=== PATIENT | male | born 1945 | race Caucasian/White ===

== ENCOUNTER → 2017-01-19 | Outpatient (CLI) | payer OTHER ==
--- NOTE | 2017-01-23 12:34 | CODING QUERY MEDICAL NECESSITY ---
SUPPORTING DIAGNOSIS NEEDED Dr. Bowen, A supporting diagnosis is required for the test/procedure performed on this patient in order for us to be reimbursed by the patient's insurance. Please provide a supporting diagnosis for the following test/procedure listed below next to the test name along with your signature. *If there is no additional diagnosis for this patient that would support the following test/procedure please document that below next to the test/procedure. Test(s)/Procedure(s) that require a supporting diagnosis: * [id number] PSA DIAGNOSIS: DATE OF SERVICE: 01/19/17 Provider Signature: Date: Thank you Anthony Dallas [facility] Information Management Once completed, please kindly fax back to [phone] For questions please call [phone]
== END | disposition home or self-care (01) ==
LOC: C.LAB 09:28
PROVIDERS: ATTEND Urology
DX: Z00.00 Encounter for general adult medical examination without abnormal findings (principal); M19.90 Unspecified osteoarthritis, unspecified site; N48.6 Induration penis plastica; N40.1 Benign prostatic hyperplasia with lower urinary tract symptoms

== ENCOUNTER 2021-09-20 23:58 | Inpatient (IN) ==
[2021-09-21 00:32] LABS: Basophils # (auto) 0.01 K/uL (0-0.2); Basophils % (auto) 0.1 %; Eosinophils # (auto) 0.02 K/uL (0-0.5); Eosinophils % (auto) 0.3 %; Hematocrit (blood only) 43.5 % (42-52); Hemoglobin 14.5 g/dL (14.0-18.0); Immature Granulocytes # (auto) 0.01 K/uL (0.00-0.02); Immature Granulocytes % (auto) 0.1 %; Lymphocytes # (auto) 0.63 K/uL (1.2-3.4); Lymphocytes % (auto) 8.6 %; Mean Corpuscular Hgb Conc 33.3 g/dL (32-36); Mean Corpuscular Volume 93.1 fL (80-100); Mean Platelet Volume 9.6 fL (7.4-10.4); Monocytes # (auto) 0.68 K/uL (0.11-0.59); Monocytes % (auto) 9.3 %; Neutrophils # (auto) 5.96 K/uL (1.4-6.5); Neutrophils % (auto) 81.6 %; Platelet Count 218 K/uL (130-400); RDW Standard Deviation 43.9 fL (36.4-46.3); Red Blood Count 4.67 M/uL (4.7-6.1); White Blood Count 7.31 K/uL (4.8-10.8)
[2021-09-21 00:36] LABS: Appearance Urine Clear (Clear); Bacteria Urine Automated Negative (Negative); Bilirubin Urine Negative (Negative); Blood Urine Negative (Negative); Cast Urine Automated 0 /lpf (0-5); Color Urine Yellow; Glucose Urine UA Negative (Negative); Ketones Urine Trace (Negative); Leukocyte Esterase Urine Negative (Negative); Nitrite Urine Negative (Negative); RBC Urine Automated 0-4 /hpf (0-4); Specific Gravity Urine 1.022 (1.000-1.030); Urobilinogen Urine Negative (Negative); WBC Urine Automated 0 /hpf (0-5); pH Urine >= 9.0 (4.5-7.5)
[2021-09-21 00:41] LABS: Protein Urine Trace (Negative)
[2021-09-21 00:42] LABS: Partial Thromboplastin Ratio 0.9; Partial Thromboplastin Time 24.9 Seconds (21.0-31.0); Prothrombin Time 10.3 Seconds (9.0-12.0)
--- NOTE | 2021-09-21 00:53 | Emergency Department Note ---
Impression & Plan COVID-19, Episode of generalized weakness, Fall Admit to the [facility] ED Provider Note NAME: MICHAEL CLARKE AGE: 76 SEX: M ARRIVES VIA: Ambulance INFORMANT: Patient's ED PROVIDER(S): Madison Lorenzo DO CHIEF COMPLAINT: Fall PLAN: Disposition: Admit to the [facility] Condition: Stable MEDICAL DECISION MAKING: This is a 76-year-old male who presents to the emergency department after suffering a fall at home. The was unable to get him up from the floor and called EMS. Upon presentation to the emergency department, the patient was noted to be febrile. Septic protocol was performed and he was noted to have COVID-19. Chest x-ray was unremarkable. O2 saturations were stable. Urinalysis was negative. Patient has been exhibiting signs of generalized weakness over the past 48 hours and has suffered 2 separate falls. I am con cerned the patient is not safe to go home for fear that he would strike his head or possibly break his hip if he were to fall again. I discussed the case with the [facility] Hospitalist and they will evaluate for further management. Triage Nursing notes reviewed and agree with them. Additional history obtained from the patient's is at the bedside Prior medical records reviewed Vital Signs: reviewed and remarkable for fever Differential diagnosis: Sepsis, UTI, pneumonia, COVID-19, bacteremia ER treatment provided: Oral Tylenol IV normal saline Diagnostics interpreted by me: ECG: Normal sinus rhythm at a rate of [address] segment elevation or signs of ischemia. There is no ectopy. Cardiac Monitoring: normal sinus rhythm at 90 Laboratory studies: See below Imaging studies: As per my interpretation Portable chest x-ray: No acute pulmonary infiltrates or consolidation Consultation(s): HPI: 76/M arrives for evaluation of increased confusion and fall. The explains that the patient seemed to be off balance and confused yesterday. Today he suffered a fall in the bathroom earlier. This evening, the patient seemed to become more weak and had a decreased appetite at dinnertime. The patient went to bed and then got up from bed and fell to the ground. He seemed more confused and was shaking. The was concerned he may have a urinary tract infection as he had increased urinary frequency. ROS: See above HPI for pertinent positives & negatives. A total of 10 systems reviewed and were otherwise negative. PAST MEDICAL HISTORY:See Below PAST SURGICAL HISTORY:See Below FAMILY HISTORY:See Below SOCIAL HISTORY:See Below HOME MEDICATIONS:See Below ALLERGIES:See Below VITALS:See Below PHYSICAL EXAMINATION: HEENT: Head - normocephalic and atraumatic. Pupils are equal, round, and reactive to light. Extraocular eye muscles are intact, and sclera are anicter ic. Nose - moist nasal mucosa without discharge. Mouth - moist buccal mucosa. Oropharynx is nonerythematous and there is no tonsillar exudate or edema noted. Neck: Supple; no JVD or cervical lymphadenopathy Heart: Regular rate and rhythm. There is a normal S1 and S2 with no murmurs, clicks, or gallops appreciated. Lungs: Clear to auscultation bilaterally with no wheezes, rales, or rhonchi. Abdomen: Soft, completely nontender, nondistended, with good bowel sounds. There are no palpable pulsatile masses or hepatosplenomegaly. There is no guarding, rigidity, or rebound noted. Extremities: No evidence of cyanosis, clubbing, or edema. There are easily palpable peripheral pulses. Skin: warm and dry with good turgor and no rashes. Neuro: The patient is able to follow commands. He is confused consistent with his dementia. ED COURSE: Times/Reassessments: 0015: The patient was evaluated in room C3. A complete history and physical was performed. Chest x-ray was performed. COVID testing was performed. A septic protocol was performed. An order was placed for continuous cardiac monitoring. The patient was in a normal sinus rhythm at a rate of 90. A twelve-lead EKG was obtained. The patient was given a dose of oral Tylenol. He was bolused with IV normal saline solution and started on a normal saline drip. Madison Lorenzo DO Past Med/Surg History Medical History (Updated 09/21/21 @ 01:37 by Madison Lorenzo DO) Dementia Hypercholesterolemia Social History (Updated 11/02/20 @ 19:47 by Dhara Jamison MD) Smoking Status: Unknown if ever smoked Preferred Language: Danish marital status: Feels Safe at Home: Yes Allergies Allergies Allergy/AdvReac Type Severity Reaction Status Date / Time No Known Allergies Allergy Verified 09/21/21 00:32 Home Meds Home Medications Medication Instructions Recorded Confirmed atorvastatin 20 mg tablet (Lipitor) 20 mg PO DAILY 10/28/20 09/21/21 donepezil 10 mg tablet 10 mg PO DAILY 10/28/20 09/21/21 Results & Data (ED) Vital Signs Vital Signs - 24 hr 09/21/21 00:04 09/21/21 00:20 09/21/21 00:30 Temperature 38.3 C H Temperature Source Oral Pulse Rate 96 H 88 Pulse Rate from SpO2 Sensor 89 Respiratory Rate 26 H 23 Respiratory Effort / Characteristics Non-Labored Blood Pressure 153/75 H 108/59 L Blood Pressure Mean 101 75 Blood Pressure Position Sitting Pulse Oximetry 94 97 97 Oxygen Delivery Method Room Air Room Air Room Air Sepsis Recent Fever Within 48 Hours Yes Sepsis New/Unexplained Change in Mental Status Yes Sepsis Action Taken by Nursing Physician Notified 09/21/21 00:50 09/21/21 01:00 Temperature Temperature Source Pulse Rate 90 Pulse Rate from SpO2 Sensor 90 Respiratory Rate 20 19 Respiratory Effort / Characteristics Non-Labored Blood Pressure 121/61 Blood Pressure Mean 81 Blood Pressure Position Pulse Oximetry 96 97 Oxygen Delivery Method Room Air Room Air Sepsis Recent Fever Within 48 Hours Sepsis New/Unexplained Change in Mental Status Sepsis Action Taken by Nursing Laboratory Data Result diagrams: 09/21/21 00:20 09/21/21 00:20 Lab Results 09/21/21 09/21/21 09/21/21 Range/Units 00:10 00:20 00:20 WBC 7.31 (4.8-10.8) K/uL RBC 4.67 L (4.7-6.1) M/uL Hgb 14.5 (14.0-18.0) g/dL Hct 43.5 (42-52) % MCV 93.1 (80-100) fL MCH 31.0 (25-34) pg MCHC 33.3 (32-36) g/dL RDW Std Deviation 43.9 (36.4-46.3) fL RDW Coeff of Dalila 13.0 (11.5-14.5) % Plt Count 218 (130-400) K/uL MPV 9.6 (7.4-10.4) fL Immature Gran % (Auto) 0.1 % Neut % (Auto) 81.6 % Lymph % (Auto) 8.6 % Scurry % (Auto) 9.3 % Eos % (Auto) 0.3 % Baso % (Auto) 0.1 % Neut # (Auto) 5.96 (1.4-6.5) K/uL Lymph # (Auto) 0.63 L (1.2-3.4) K/uL Scurry # (Auto) 0.68 H (0.11-0.59) K/uL Eos # (Auto) 0.02 (0-0.5) K/uL Baso # (Auto) 0.01 (0-0.2) K/uL Immature Gran # (Auto) 0.01 (0.00-0.02) K/uL PT 10.3 (9.0-12.0) Seconds INR 1.0 (0.9-1.1) APTT 24.9 (21.0-31.0) Seconds PTT Ratio 0.9 Sodium (136-145) mmol/L Potassium (3.5-5.1) mmol/L Chloride (98-107) mmol/L Carbon Dioxide (21-32) mmol/L Anion Gap (3-11) BUN (6-23) mg/dl Creatinine (0.6-1.4) mg/dl Est Cr Clr Drug Dosing ml/min Est GFR ( Amer) ml/min Est GFR (Non-Af Amer) ml/min BUN/Creatinine Ratio (10-20) Glucose (70-99(Fasting)) mg/dl Lactate (0.4-2.0) mmol/L Calcium (8.5-10.1) mg/dl Magnesium (1.7-2.4) mg/dl Total Bilirubin (0.2-1.0) mg/dl AST (13-39) U/L ALT (7-52) U/L Alkaline Phosphatase (34-104) U/L Total Protein (6.0-8.3) gm/dl Albumin (3.4-5.0) gm/dl Globulin (2.5-4.0) gm/dl Albumin/Globulin Ratio (0.9-2) Urine Color Yellow Urine Appearance Clear (Clear) Urine pH >= 9.0 H (4.5-7.5) Ur Specific [place] 1.022 (1.000-1.030) Urine Protein Trace H (Negative) Urine Glucose (UA) Negative (Negative) Urine Ketones Trace H (Negative) Urine Blood Negative (Negative) Urine Nitrite Negative (Negative) Urine Bilirubin Negative (Negative) Urine Urobilinogen Negative (Negative) Ur Leukocyte Esterase Negative (Negative) Urine WBC (Auto) 0 (0-5) /hpf Urine RBC (Auto) 0-4 (0-4) /hpf U Hyaline Cast (Auto) 0 (0-5) /lpf U Epithel Cells (Auto) 5-10 H (0-5) /lpf Urine Bacteria (Auto) Negative (Negative) SARS-CoV-2, RNA, NAAT (NEGATIVE) 09/21/21 09/21/21 09/21/21 Range/Units 00:20 00:35 00:50 WBC (4.8-10.8) K/uL RBC (4.7-6.1) M/uL Hgb (14.0-18.0) g/dL Hct (42-52) % MCV (80-100) fL MCH (25-34) pg MCHC (32-36) g/dL RDW Std Deviation (36.4-46.3) fL RDW Coeff of Dalila (11.5-14.5) % Plt Count (130-400) K/uL MPV (7.4-10.4) fL Immature Gran % (Auto) % Neut % (Auto) % Lymph % (Auto) % Scurry % (Auto) % Eos % (Auto) % Baso % (Auto) % Neut # (Auto) (1.4-6.5) K/uL Lymph # (Auto) (1.2-3.4) K/uL Scurry # (Auto) (0.11-0.59) K/uL Eos # (Auto) (0-0.5) K/uL Baso # (Auto) (0-0.2) K/uL Immature Gran # (Auto) (0.00-0.02) K/uL PT (9.0-12.0) Seconds INR (0.9-1.1) APTT (21.0-31.0) Seconds PTT Ratio Sodium 138 (136-145) mmol/L Potassium 4.0 (3.5-5.1) mmol/L Chloride 101 (98-107) mmol/L Carbon Dioxide 30 (21-32) mmol/L Anion Gap 7 (3-11) BUN 13 (6-23) mg/dl Creatinine 1.08 (0.6-1.4) mg/dl Est Cr Clr Drug Dosing 53.3 ml/min Est GFR ( Amer) 77.4 ml/min Est GFR (Non-Af Amer) 66.8 ml/min BUN/Creatinine Ratio 12.0 (10-20) Glucose 120 H (70-99(Fasting)) mg/dl Lactate 1.1 (0.4-2.0) mmol/L Calcium 9.2 (8.5-10.1) mg/dl Magnesium 2.3 (1.7-2.4) mg/dl Total Bilirubin 0.6 (0.2-1.0) mg/dl AST 21 (13-39) U/L ALT 18 (7-52) U/L Alkaline Phosphatase 77 (34-104) U/L Total Protein 7.2 (6.0-8.3) gm/dl Albumin 4.3 (3.4-5.0) gm/dl Globulin 2.9 (2.5-4.0) gm/dl Albumin/Globulin Ratio 1.5 (0.9-2) Urine Color Urine Appearance (Clear) Urine pH (4.5-7.5) Ur Specific [place] (1.000-1.030) Urine Protein (Negative) Urine Glucose (UA) (Negative) Urine Ketones (Negative) Urine Blood (Negative) Urine Nitrite (Negative) Urine Bilirubin (Negative) Urine Urobilinogen (Negative) Ur Leukocyte Esterase (Negative) Urine WBC (Auto) (0-5) /hpf Urine RBC (Auto) (0-4) /hpf U Hyaline Cast (Auto) (0-5) /lpf U Epithel Cells (Auto) (0-5) /lpf Urine Bacteria (Auto) (Negative) SARS-CoV-2, RNA, NAAT POSITIVE A* (NEGATIVE) Administered Medications Sodium Chloride (Nss) 500 mls @ 999 mls/hr IV .Q31M ONE Stop: 09/21/21 01:52 Last Admin: 09/21/21 01:33 Dose: 999 mls/hr Documented by: [id number] Discontinued Medications Acetaminophen (Acetaminophen 500 Mg Tab) 1,000 mg PO NOW STA Stop: 09/21/21 01:23 Last Admin: 09/21/21 01:33 Dose: 1,000 mg Documented by: [id number] Discharge Plan Visit Data Chief Complaint: Fall Stated Complaint: FALL ED Provider: Madison Lorenzo Discharge Problem: COVID-19, Episode of generalized weakness, Fall Forms Stand Alone Forms: [facility] [id number] Prescriptions Prescriptions: No Action atorvastatin [Lipitor] 20 mg tablet 20 mg PO DAILY RF: 0 donepezil 10 mg tablet 10 mg PO DAILY RF: 0 Referrals Referrals: Stanley Pillai MD [Primary Care Provider] - Discharge Problem: Fall Qualifiers: Encounter type: initial encounter Qualified Code(s): W19.XXXA - Unspecified fall, initial encounter
[2021-09-21 00:54] LABS: Albumin Globulin Ratio 1.5 (0.9-2); Albumin Level 4.3 gm/dl (3.4-5.0); Bilirubin,Total 0.6 mg/dl (0.2-1.0); Calcium 9.2 mg/dl (8.5-10.1); Creatinine Clr Calc Pharmacy 53.3 ml/min; Est GFR (African American) 77.4 ml/min; Est GFR (Non-African American) 66.8 ml/min; Globulin 2.9 gm/dl (2.5-4.0); Magnesium 2.3 mg/dl (1.7-2.4); Total Protein 7.2 gm/dl (6.0-8.3)
[2021-09-21] MEDS ORDERED: SODIUM CHLORIDE 0.9% 500 ML IV ONE (01:22)
[2021-09-21] MEDS ORDERED: ACETAMINOPHEN 500 MG TAB PO STA (01:22)
[2021-09-21] MEDS ORDERED: SODIUM CHLORIDE 0.9% 500 ML IV SCH (01:30)
[2021-09-21] MEDS ORDERED: POLYETHYLENE (MIRALAX) 17 GM PACK PO PRN (05:02)
[2021-09-21] MEDS ORDERED: ONDANSETRON INJ 2 MG/ML 2 ML VIAL IV PRN (05:02)
[2021-09-21] MEDS ORDERED: NITROGLYCERIN SL 0.4 MG/TAB TAB SL PRN (05:02)
[2021-09-21] MEDS ORDERED: SODIUM CHLORIDE 0.9% 1000ML 1,000 ML IV SCH (05:30)
--- NOTE | 2021-09-21 07:09 | XRay Report ---
SINGLE VIEW CHEST CLINICAL HISTORY: Sepsis. FINDINGS: 2 AP, portable, upright chest radiographs are obtained. No prior studies are available for comparison at the time of dictation. The heart is mildly enlarged. The pulmonary vasculature is nonc ongested. The lungs and pleural spaces are clear. No pneumothorax is seen. The skeletal structures ar e osteopenic. The bony thorax is grossly intact. IMPRESSION: Mild cardiomegaly with no acute cardiopulmonary abnormality. ACT 112: Negative or not required by law. Electronically signed by: Victor Hugo Overton M.D. 09/21/2021 7:08 AM
--- NOTE | 2021-09-21 07:40 | Electrocardiogram Report ---
Test Reason : Blood Pressure : / mmHG Vent. Rate : 096 BPM Atrial Rate : 096 BPM P-R Int : 144 ms QRS Dur : 080 ms QT Int : 322 ms P-R-T Axes : 081 083 078 degrees QTc Int : 406 ms Poor data quality, interpretation may be adversely affected Sinus rhythm with PACs Possible Left atrial enlargement Borderline ECG When compared with ECG of 13-MAY-2013 12:41, No significant change was found Confirmed by Solo Frey ([id number]) on 09/21/2021 7:39:44 AM Referred By: REFERRED SELF Confirmed By:Domenico Frey
--- NOTE | 2021-09-21 08:00 | History and Physical Report ---
DATE OF ADMISSION: 09/21/2021. CHIEF COMPLAINT: Falls and fever. HISTORY OF PRESENT ILLNESS: This is a 76-year-old male with past medical history significant for hyperlipidemia, dementia, Bay's esophagus, glaucoma, who lives at home with his , presents with falls. As per the , the patient's dementia is getting worse. He knows his name, he can recognize the familiar faces, knows where he is, walks without any support, eats regular food, but needs help with clothing and can do exercise but not able to simple tasks if she asks him to do.. But since yesterday, she thought he was a little confused and today he had a couple of falls and when he fell the second time, he felt his body was warm and she called the EMS. By the time EMS arrived, he had cough with some phlegm and he had some cough in the ER. In the ER, he was having temp spike saturating okay on room air and COVID test came back positive. He was vaccinated with Moderna, second dose was on 12/14/2020. Currently sleeping, somewhat confused. As per the , the patient does not generally complain of any pain. There is no nausea or vomiting. No diarrhea. Appetite is down today. Otherwise, he eats and swallows okay. Could not get any other history as the patient has severe dementia. ALLERGIES: No known drug allergies. PAST MEDICAL HISTORY: As mentioned above. PAST SURGICAL HISTORY: Colonoscopy, EGDs, EGD with endoscopic ultrasound, injection of the eye drug cataract surgery, right shoulder arthroscopy, sinus surgery. HOME MEDICATIONS: The patient is on atorvastatin 20 mg p.o. daily, donepezil 10 mg p.o. daily. FAMILY HISTORY: Significant for daughter has asthma, mother has colon cancer, brother has CAD, sister has heart disorder. SOCIAL HISTORY: , former smoker, quit in 1977. Smoked 2 packs a day for 15 years. No alcohol use. No drug use. REVIEW OF SYSTEMS: As per HPI. Rest of the review of systems is negative. PHYSICAL EXAMINATION: GENERAL: The patient is of moderate build, not in acute distress. VITAL SIGNS: Temperature 37.7, pulse 91, respiratory rate 15, blood pressure 106/59, oxygen 95% on room air. HEENT: Pupils equal, round and reactive to light. Oral mucosa moist. NECK: No JVD, no neck masses. CARDIOVASCULAR: S1 and S2 heard. Regular rate and rhythm. No murmur, no gallop. RESPIRATORY: Normal AP diameter. No accessory muscle use. No wheezing, no crackles. ABDOMEN: Soft, bowel sounds present, nontender, no distention. CENTRAL NERVOUS SYSTEM: No facial droop seen. Obeys simple commands. Moves extremities. EXTREMITIES: No edema, no erythema. LABORATORY DATA: WBC 7.3, hemoglobin 14.5, hematocrit 45.5, platelets 218. PT 10.3, INR 1, APTT 24.9. Sodium 138, potassium 4, chloride 101, bicarbonate 30, BUN 13, creatinine 1.08, serum glucose 120, lactate 1.1, calcium 9.2, magnesium 2.3, total bilirubin 0.6, AST 21, ALT 18, alkaline phosphatase 77. Urinalysis, trace ketones. COVID positive. IMAGING DATA: Chest x-ray, no acute findings. EKG: Sinus rhythm with marked sinus arrhythmia at a rate of 96, no significant change was found. ASSESSMENT AND PLAN: This 76-year-old male presents with increasing confusion, falls, and found to have COVID-19. 1. COVID-19: Saturating fine on room air. Has mild temperature spike, also increasing confusion, and falls at home. Currently does not meet criteria for remdesivir or steroids. The patient was vaccinated with Moderna, second dose on 12/04/2020, did not receive any booster dose. Receiving gentle fluids, supportive care, and PT/OT when stable. Monitor in the [employer] tele. 2. History of dementia: Continue with donepezil. Monitor for any delirium. 3. Hyperlipidemia: Continue statin. 4. Deep venous thrombosis prophylaxis: Lovenox. DISPOSITION: Closely monitor in med tele. PT/OT prior to discharge. Social service to help with discharge planning. Job ID: [id number] [facility]
[2021-09-21] MEDS: ENOXAPARIN INJ 40 MG/0.4 ML SYR SQ SCH (09:02)
[2021-09-21] MEDS: ACETAMINOPHEN 325 MG TAB PO PRN ×2 (11:35→19:06)
[2021-09-22] MEDS: ACETAMINOPHEN 325 MG TAB PO PRN (02:36)
[2021-09-22] MEDS: dexAMETHasone 6 MG in SYRINGE 0 ML IV SCH (03:30)
[2021-09-22] MEDS ORDERED: REMDESIVIR 200 MG in SODIUM CHLORIDE 0.9% 210 ML IV ONE (08:00)
--- NOTE | 2021-09-22 08:15 | CT Scan Report ---
CT head/brain wo con CLINICAL HISTORY: fall Technique: Contiguous axial CT images of the head were acquired from the base of the skull to the emmanuel liz without intravenous contrast administration. Images were viewed in brain, subdural and bone [facility]. Automated dose lowering techniques and/or adjustment according to patient size were utilized for this exam. Comparison: Comparison is made to CT sinuses 05/21/2020 Findings: Areas of decreased attenuation are present in the periventricular and subcortical white matter bilate rally consistent with small vessel ischemic disease. Generalized cerebral atrophy with commensurate e nlargement of the ventricles, sulci, and cisterns is also present. There is no acute intracranial hem orrhage or evidence of acute territorial infarction. No shift of the midline structures, mass effect, or extra-axial abnormalities are shown. Atherosclerotic calcifications are present in the intracran ial segments of the internal carotid arteries. Imaged portions of the paranasal sinuses and mastoid air cells are clear. The orbits appear normal. There are no acute fractures of the calvaria or scalp swelling. Impression: No acute intracranial hemorrhage, no evidence of acute territorial infarction or other acute intracra nial disease process. ACT 112: Negative or not required by law. Electronically signed by: Chalo Bailey M.D. 09/22/2021 8:14 AM
[2021-09-22] MEDS: ENOXAPARIN INJ 40 MG/0.4 ML SYR SQ SCH (08:47)
--- NOTE | 2021-09-22 10:18 | Hospitalist Progress Note ---
Date of Service September 22, 2021 Assessment & Plan (1) COVID-19: (2) Episode of generalized weakness: (3) Fall: (4) Hypercholesterolemia: (5) Dementia: Plan: 76-year-old male with a past medical history of dementia and hypercholesterolemia had a fall at home and was found to be COVID-positive. We have placed him on dexamethasone, DVT prophylaxis with Lovenox and remdesivir. We will follow COVID protocol. He is currently 94% on 4 L. We will work on placement, monitor daily labs. Continue outpatient medications where appropriate. ROS-No Headache, No Visual Changes, No Nausea, No Vomiting, No Fever, No Chills, No Neck Pain or Stiffness, No Chest Pain, No Palpitations, No SOB, No DAVIS, No Cough, No Sputum, No Wheezing, No Abdominal Pain, No Diarrhea, No Hematemesis, No Hemoptysis, No Unexpected Weight Loss, No Flank pain, No Melena, No Hematochezia, No Frequency, No Urgency, No Burning, No Hematuria, No Rashes, No Diaphoresis. Appetite is Normal Physical Exam Gen-AAO x 1, NAD, Afebrile Head-NCAT, EOMI, PERRLA, Anicteric Sclera, No Posterior Pharyngeal Erythema Neck-Supple, No JVD, No Thyromegaly, No Masses, No LAD, No Bruits Lungs-Clear to Auscultation Bilaterally, No Rales, No Rhonchi, No Wheezing, No Crepitus Chest-No S4, +S1, +S2, No S3, No Murmurs, No Rubs, No Gallops, No Ectopy Abdomen-Soft, Bowel Sounds Present, Non Tender, Non Distended, No Hepatomegaly, No Splenomegaly, No Palpable Masses, No Rebound, No Rigidity, No Guarding Musculoskeletal-Full Range of Motion Bilaterally, No CVAT Extremities-No Cyanosis, No Clubbing, No Edema Nuero-Cranial Nerves II-XII grossly intact, Motor WNL, DTRs WNL, Strength WNL, Non Focal Psych-Normal Mood Admission and Anticipated Discharge Date Admission Date: September 21, 2021 Subjective Patient seen, demented, oriented to person. Results & Data Results & Data ([facility]) Vital Signs (Past 12 Hours) Vital Signs Temp Pulse Pulse Resp BP Pulse Ox 09/22/21 07:46 36.9 C 76 20 108/67 94 09/22/21 07:15 77 09/22/21 03:29 37.9 C H 86 18 100/58 L 92 09/22/21 01:59 38.6 C H 09/21/21 22:23 81 Laboratory Results Reviewed (1) Fall Encounter type: initial encounter Qualified Code(s): W19.XXXA - Unspecified fall, initial encounter
--- NOTE | 2021-09-22 10:59 | XRay Report ---
XR chest 1V portable CLINICAL HISTORY: hypoxia TECHNIQUE: Single frontal radiograph of the chest was obtained. Comparison: Comparison is made to chest one view 09/21/2021 FINDINGS: No lines and tubes are seen. The cardiomediastinal silhouette is normal. There is a right perihilar a irspace opacity. No evidence of pleural effusion or pneumothorax. IMPRESSION: Right perihilar airspace opacity which may represent atelectasis, pneumonia, and/or aspiration. ACT 112: Negative or not required by law. Electronically signed by: Chalo Bailey M.D. 09/22/2021 10:57 AM
[2021-09-22] MEDS: ACETAMINOPHEN 1000 MG/100 ML IV IV PRN (17:48)
[2021-09-23 07:08] LABS: Hematocrit (blood only) 42.6 % (42-52); Hemoglobin 14.2 g/dL (14.0-18.0); Mean Corpuscular Hgb Conc 33.3 g/dL (32-36); Mean Platelet Volume 10.5 fL (7.4-10.4); Platelet Count 181 K/uL (130-400); RDW Standard Deviation 44.4 fL (36.4-46.3); Red Blood Count 4.58 M/uL (4.7-6.1); White Blood Count 5.85 K/uL (4.8-10.8)
[2021-09-23 07:29] LABS: Albumin Globulin Ratio 1.1 (0.9-2); Albumin Level 3.3 gm/dl (3.4-5.0); BUN Creatinine Ratio 25.5 (10-20); Bilirubin,Total 0.8 mg/dl (0.2-1.0); Calcium 8.1 mg/dl (8.5-10.1); Creatinine Clr Calc Pharmacy 54.3 ml/min; Est GFR (African American) 79.2 ml/min; Est GFR (Non-African American) 68.3 ml/min; Globulin 2.9 gm/dl (2.5-4.0); Potassium 4.2 mmol/L (3.5-5.1); Total Protein 6.2 gm/dl (6.0-8.3)
[2021-09-23] MEDS: ACETAMINOPHEN 1000 MG/100 ML IV IV PRN (09:23)
[2021-09-23] MEDS: dexAMETHasone 6 MG in SYRINGE 0 ML IV SCH (09:30)
[2021-09-23] MEDS: ENOXAPARIN INJ 40 MG/0.4 ML SYR SQ SCH (09:30)
[2021-09-23] MEDS: REMDESIVIR 100 MG in SODIUM CHLORIDE 0.9% 230 ML IV SCH (12:11)
--- NOTE | 2021-09-23 14:38 | XRay Report ---
XR chest 1V portable CLINICAL HISTORY: hypoxia COMPARISON STUDY: Chest radiograph September 22, 2021. FINDINGS: Tip of feeding tube projects over the body of the stomach. There has been progression of bi lateral airspace opacities since prior examination. Cardiac size is normal. There is no pneumothorax or pleural effusion. IMPRESSION: 1. Tip of feeding tube within the body of the stomach. 2. Progression of bilateral airspace opacities, greater within the right lung. The findings may refle ct pneumonia or aspiration pneumonitis. ACT 112: Negative or not required by law. Electronically signed by: Bogdan Quintanilla M.D. 09/23/2021 2:36 PM
[2021-09-23] MEDS: PEPTAMEN 1.5 CAL 1,000 ML BAG PO SCH (17:25)
[2021-09-23] MEDS: TUBE FEEDING WATER FLUSH NG SCH ×2 (17:26→21:32)
[2021-09-24] MEDS: TUBE FEEDING WATER FLUSH NG SCH ×6 (00:30→20:30)
[2021-09-24 06:55] LABS: Hematocrit (blood only) 44.9 % (42-52); Mean Corpuscular Hemoglobin 31.2 pg (25-34); Mean Corpuscular Hgb Conc 33.4 g/dL (32-36); Mean Corpuscular Volume 93.3 fL (80-100); Mean Platelet Volume 10.6 fL (7.4-10.4); Platelet Count 207 K/uL (130-400); RDW Coefficient of Variation 12.8 % (11.5-14.5); RDW Standard Deviation 44.3 fL (36.4-46.3); Red Blood Count 4.81 M/uL (4.7-6.1); White Blood Count 6.47 K/uL (4.8-10.8)
[2021-09-24 07:22] LABS: Albumin Globulin Ratio 1.1 (0.9-2); Albumin Level 3.2 gm/dl (3.4-5.0); BUN Creatinine Ratio 34.5 (10-20); Bilirubin,Total 0.9 mg/dl (0.2-1.0); Calcium 8.7 mg/dl (8.5-10.1); Creatinine Clr Calc Pharmacy 64.6 ml/min; Est GFR (African American) 99.3 ml/min; Est GFR (Non-African American) 85.7 ml/min; Total Protein 6.2 gm/dl (6.0-8.3)
[2021-09-24] MEDS: dexAMETHasone 6 MG in SYRINGE 0 ML IV SCH (08:58)
[2021-09-24] MEDS: ACETAMINOPHEN 1000 MG/100 ML IV IV PRN ×2 (09:06→20:56)
[2021-09-24] MEDS ORDERED: KETOROLAC TROMETHAMINE 15 MG/ML VIAL IV PRN (10:20)
--- NOTE | 2021-09-24 10:24 | Hospitalist Progress Note ---
Date of Service September 24, 2021 Assessment & Plan (1) COVID-19: (2) Episode of generalized weakness: (3) Fall: (4) Hypercholesterolemia: (5) Dementia: Plan: 76-year-old male with a past medical history of dementia and hypercholesterolemia had a fall at home and was found to be COVID-positive. We have placed him on dexamethasone, DVT prophylaxis with Lovenox and remdesivir. We will follow COVID protocol. He is currently 84% on 15L high flow nasal cannula. Discussed CODE STATUS with again and he would like to be a DNR per his . She says daughter is coming in later today to see him. ROS-offers no history Physical Exam Gen-somnolent, moderate respiratory distress, febrile, very ill-appearing, declining Head-NCAT, EOMI, PERRLA, Anicteric Sclera, No Posterior Pharyngeal Erythema Neck-Supple, No JVD, No Thyromegaly, No Masses, No LAD, No Bruits Lungs-coarse breath sounds bilaterally with wheezing Chest-No S4, +S1, +S2, No S3, No Murmurs, No Rubs, No Gallops, No Ectopy Abdomen-Soft, Bowel Sounds Present, Non Tender, Non Distended, No Hepatomegaly, No Splenomegaly, No Palpable Masses, No Rebound, No Rigidity, No Guarding Musculoskeletal-Full Range of Motion Bilaterally, No CVAT Extremities-No Cyanosis, No Clubbing, No Edema Nuero-Cranial Nerves II-XII grossly intact, Motor WNL, DTRs WNL, Strength WNL, Non Focal Psych-somnolent Admission and Anticipated Discharge Date Admission Date: September 21, 2021 Subjective Patient seen, at bedside, oxygen requirements increasing each day, not responding, not following commands. Currently hypoxic on 15L high flow nasal cannula Results & Data Results & Data ([facility]) Vital Signs (Past 12 Hours) Vital Signs Temp Pulse Pulse Pulse Resp BP Pulse Ox 09/24/21 09:06 39.7 C H 09/24/21 08:45 37.1 C 127 H 24 129/61 84 L 09/24/21 03:41 37.1 C 68 19 118/74 93 09/24/21 00:12 68 09/23/21 23:18 37.1 C 69 19 104/53 L 93 (1) Fall Encounter type: initial encounter Qualified Code(s): W19.XXXA - Unspecified fall, initial encounter
[2021-09-24] MEDS: REMDESIVIR 100 MG in SODIUM CHLORIDE 0.9% 230 ML IV SCH (12:33)
[2021-09-24] MEDS: ENOXAPARIN INJ 40 MG/0.4 ML SYR SQ SCH (12:33)
[2021-09-24] MEDS: PEPTAMEN 1.5 CAL 1,000 ML BAG PO SCH (18:12)
[2021-09-25] MEDS: TUBE FEEDING WATER FLUSH NG SCH ×5 (00:31→16:30)
[2021-09-25] MEDS ORDERED: MoRPHine SULFATE 2 MG/ML CARP IV STA (03:01)
[2021-09-25] MEDS: ACETAMINOPHEN 1000 MG/100 ML IV IV PRN ×2 (04:43→12:37)
[2021-09-25] MEDS: MoRPHine SULFATE 2 MG/ML CARP IV PRN ×3 (05:16→18:20)
[2021-09-25 06:56] LABS: Hemoglobin 15.6 g/dL (14.0-18.0); Mean Corpuscular Hemoglobin 31.3 pg (25-34); Mean Corpuscular Hgb Conc 33.2 g/dL (32-36); Mean Corpuscular Volume 94.2 fL (80-100); Platelet Count 222 K/uL (130-400); RDW Coefficient of Variation 13.3 % (11.5-14.5); RDW Standard Deviation 46.1 fL (36.4-46.3); Red Blood Count 4.99 M/uL (4.7-6.1); White Blood Count 1.89 K/uL (4.8-10.8)
[2021-09-25 07:25] LABS: BUN Creatinine Ratio 27.8 (10-20); Calcium 8.8 mg/dl (8.5-10.1); Est GFR (African American) 34.8 ml/min; Est GFR (Non-African American) 30.1 ml/min; Magnesium 2.7 mg/dl (1.7-2.4); Potassium 4.2 mmol/L (3.5-5.1)
[2021-09-25 08:26] LABS: Basophils # (auto) 0.01 K/uL (0-0.2); Basophils % (auto) 0.5 %; Hypogranular Neutrophils 1+; Immature Granulocytes # (auto) 0.03 K/uL (0.00-0.02); Immature Granulocytes % (auto) 1.6 %; Lymphocytes % (auto) 15.9 %; Monocytes # (auto) 0.83 K/uL (0.11-0.59); Monocytes % (auto) 43.9 %; Neutrophils # (auto) 0.72 K/uL (1.4-6.5); Neutrophils % (auto) 38.1 %
[2021-09-25] MEDS ORDERED: HEPARIN SOD 5,000 UNIT/0.5 ML VIAL SQ SCH (09:00)
[2021-09-25] MEDS ORDERED: D5W AND 1/2NSS 1,000 ML IV SCH (09:00)
[2021-09-25] MEDS: dexAMETHasone 6 MG in SYRINGE 0 ML IV SCH (09:24)
--- NOTE | 2021-09-25 09:42 | XRay Report ---
SINGLE VIEW CHEST CLINICAL HISTORY: Dyspnea. FINDINGS: An AP, portable, upright chest radiograph is compared to study dated 09/23/2021. Enteric tub e is unchanged in position. The cardiomediastinal silhouette is unremarkable noting atherosclerotic c alcification of the thoracic aorta. There is increasing right basilar consolidation as compared to . There is trace right pleural effusion. Milder consolidation is seen at the medial left lung base. No pneumothorax is seen. The skeletal structures are osteopenic. The bony thorax is grossly int act. IMPRESSION: 1. There is increasing right basilar airspace consolidation a small right pleural effusion. The appea rufina is typical for pneumonia/aspiration pneumonitis. Radiographic follow-up to resolution is recomm ended. 2. Milder consolidation is seen at the left lung base. ACT 112: Negative or not required by law. Electronically signed by: Victor Hugo Overton M.D. 09/25/2021 9:40 AM
[2021-09-25] MEDS ORDERED: cefTRIAXone SODIUM 1,000 MG in DEXTROSE 5% 50 ML IV SCH (11:00)
--- NOTE | 2021-09-25 11:57 | Ultrasound Report ---
US renal/blad retro comp HISTORY: 76 years-old Male arun acute kidney injury COMPARISON: None TECHNIQUE: Multiple real-time sonographic images of the kidneys and urinary bladder were obtained ass essing grayscale appearance and color flow FINDINGS: The right kidney measures 9.8 x 3.2 x 4.4 cm and is unremarkable without renal calculi, hydronephrosi s or suspicious mass lesion. The left kidney measures 12.1 x 4.6 x 4.5 cm and is unremarkable without renal calculi, hydronephrosi s or suspicious mass lesion. The left kidney is suboptimally visualized secondary to limited acoustic window and patient movement. Decompressed or bladder with Harrison catheter in place. IMPRESSION: 1. Unremarkable sonographic appearance of the kidneys. 2. Decompressed urinary bladder. ACT 112: Negative or not required by law. The above report was generated using voice recognition software. It may contain grammatical, syntax o r spelling errors. Electronically signed by: Osmany Ash M.D. 09/25/2021 11:56 AM
[2021-09-25] MEDS ORDERED: DOXYCYCLINE HYCLATE 100 MG in DEXTROSE 5% 100 ML IV SCH (12:00)
[2021-09-25] MEDS ORDERED: SODIUM CHLORIDE 0.9% 1000ML 500 ML IV SCH ×2 (12:45→16:05)
[2021-09-25] MEDS: REMDESIVIR 100 MG in SODIUM CHLORIDE 0.9% 230 ML IV SCH (15:37)
[2021-09-25] MEDS ORDERED: ALBUMIN 25% 100 mL 25 GM/100 ML VIAL IV ONE (16:30)
[2021-09-25 17:37] VITALS: TEMP 100.6
[2021-09-25 18:24] VITALS: BP 71/42
[2021-09-25] MEDS ORDERED: HYDROmorphone INJ 0.5 MG/0.5 ML SYR IV PRN (18:39)
[2021-09-25] MEDS ORDERED: LORazepam 0.5 MG/1 ML VIAL IV PRN (18:39)
[2021-09-25] MEDS ORDERED: ACETAMINOPHEN 650 MG SUPP PR PRN (18:39)
[2021-09-25] MEDS ORDERED: LORazepam 0.5 MG TAB PO PRN (18:39)
[2021-09-25] MEDS ORDERED: BACLOFEN 10 MG TAB PO PRN (18:39)
[2021-09-25] MEDS ORDERED: ONDANSETRON INJ 2 MG/ML 2 ML VIAL IV PRN (18:39)
[2021-09-25] MEDS ORDERED: GLYCOPYRROLATE 0.2 MG/ML VIAL IV PRN (18:39)
[2021-09-25] MEDS ORDERED: ONDANSETRON 4 MG OD TAB SL PRN (18:39)
[2021-09-25] MEDS ORDERED: MoRPHine SULFATE 2 MG/ML CARP IV PRN (18:39)
[2021-09-25] MEDS ORDERED: MoRPHine SULFATE 5 MG/0.25 ML UDP PO PRN (18:39)
[2021-09-25] MEDS ORDERED: LORazepam 2 MG/4 ML VIAL IV PRN (18:39)
[2021-09-25] MEDS ORDERED: ACETAMINOPHEN 325 MG TAB PO PRN (18:39)
--- NOTE | 2021-09-25 18:51 | Hospitalist Progress Note ---
Date of Service September 25, 2021 Assessment & Plan (1) COVID-19: (2) Fall: Plan: 76-year-old male with a past medical history of dementia and hypercholesterolemia had a fall at home and was found to be COVID-positive. We have placed him on dexamethasone, DVT prophylaxis with Lovenox and remdesivir. Was under COVID protocol. Overnight patient desaturated and needed BiPAP to maintain saturation in low 90s and patient has become more and more less respo nsive over the day today. He was being managed for the following: (1) COVID-19: (2) Episode of generalized weakness: (3) Fall: (4) Hypercholesterolemia: (5) Dementia: Had multiple discussion with patient's over the day and with the family (pt's and 2 dtrs) in the evening, updated about the current status of the patient and given the worsening status, family decided to go ahead with comfort care after family meeting in the evening. Comfort care orders will be instituted and nurse made aware. Admission and Anticipated Discharge Date Admission Date: September 21, 2021 Subjective Patient was lying in bed, on BiPAP, not very much responsive and able to rika ate, ROS n/a. Per RN, patient had respiratory distress overnight requiring BiPAP and maintaining saturation in low 90s, patient has been less responsive as of lately. Physical Exam Physical Exam: GENERAL: Confused and not able to cooperate, on BiPAP. HEENT: No pallor, no icterus. Pupils equal, round and reactive to light. Oral mucosa dry. NECK: No JVD, no neck masses. HEART: S1 and S2 heard. Regular rate and rhythm. No murmur, no gallop. RESPIRATORY SYSTEM: Normal AP diameter. No accessory muscle use. No wheezing, decreased breath sounds with occasional crackles especially on the right side. ABDOMEN: Soft, bowel sounds present,, no distention. CENTRAL NERVOUS SYSTEM: n/a EXTREMITIES: No edema, no erythema seen. Results & Data Results & Data ([facility]) Vital Signs (Past 12 Hours) Vital Signs Temp Pulse Pulse Resp BP Pulse Ox 09/25/21 18:24 71/42 L 09/25/21 17:36 38.1 C H 09/25/21 15:43 38 C H 09/25/21 15:42 67/46 L 09/25/21 14:15 39 C H 122 H 46 H 81/51 L 09/25/21 12:40 76/49 L 09/25/21 11:38 39.3 C H 137 H 22 81/54 L 90 09/25/21 11:05 140 H 53 H 87 L 09/25/21 08:05 37.8 C H 126 H 22 90/44 L 95 09/25/21 07:20 104 H 52 H 94 (1) Fall Encounter type: initial encounter Qualified Code(s): W19.XXXA - Unspecified fall, initial encounter
[2021-09-25] MEDS ORDERED: LORazepam 0.5 MG/1 ML VIAL IV SCH (19:00)
[2021-09-25 20:18] VITALS: PULSE 83; O2SAT 99
--- NOTE | 2021-09-26 16:29 | Discharge Summary ---
Date of Service September 26, 2021 Admission HPI Per Admitting Provider CHIEF COMPLAINT: Falls and fever. HISTORY OF PRESENT ILLNESS: This is a 76-year-old male with past medical history significant for hyperlipidemia, dementia, Bay's esophagus, glaucoma, who lives at home with his , presents with falls. As per the , the patient's dementia is getting worse. He knows his name, he can recognize the familiar faces, knows where he is, walks without any support, eats regular food, but needs help with clothing and can do exercise but not able to simple tasks if she asks him to do.. But since yesterday, she thought he was a little confused and today he had a couple of falls and when he fell the second time, he felt his body was warm and she called the EMS. By the time EMS arrived, he had cough with some phlegm and he had some cough in the ER. In the ER, he was havi ng temp spike saturating okay on room air and COVID test came back positive. He was vaccinated with Moderna, second dose was on 12/14/2020. Currently sleeping, somewhat confused. As per the , the patient does not generally complain of any pain. There is no nausea or vomiting. No diarrhea. Appetite is down today. Otherwise, he eats and swallows okay. Could not get any other history as the patient has severe dementia. ALLERGIES: No known drug allergies. PAST MEDICAL HISTORY: As mentioned above. PAST SURGICAL HISTORY: Colonoscopy, EGDs, EGD with endoscopic ultrasound, injection of the eye drug cataract surgery, right shoulder arthroscopy, sinus surgery. HOME MEDICATIONS: The patient is on atorvastatin 20 mg p.o. daily, donepezil 10 mg p.o. daily. FAMILY HISTORY: Significant for daughter has asthma, mother has colon cancer, brother has CAD, sister has heart disorder. SOCIAL HISTORY: , former smoker, quit in 1977. Smoked 2 packs a day for 15 years. No alcohol use. No drug use. REVIEW OF SYSTEMS: As per HPI. Rest of the review of systems is negative. Admission Exam Per Admitting Provider PHYSICAL EXAMINATION: GENERAL: The patient is of moderate build, not in acute distress. VITAL SIGNS: Temperature 37.7, pulse 91, respiratory rate 15, blood pressure 106/59, oxygen 95% on room air. HEENT: Pupils equal, round and reactive to light. Oral mucosa moist. NECK: No JVD, no neck masses. CARDIOVASCULAR: S1 and S2 heard. Regular rate and rhythm. No murmur, no gallop. RESPIRATORY: Normal AP diameter. No accessory muscle use. No wheezing, no crackles. ABDOMEN: Soft, bowel sounds present, nontender, no distention. CENTRAL NERVOUS SYSTEM: No facial droop seen. Obeys simple commands. Moves extremities. EXTREMITIES: No edema, no erythema. Principal Diagnosis Acute hypoxic respiratory failure secondary to pneumonia secondary to COVID-19 virus infection. Discharge Exam Patient overnight, hence physical examination not available from this provider. Discharge Data Allergies Allergy/AdvReac Type Severity Reaction Status Date / Time No Known Allergies Allergy Verified 09/21/21 00:32 Consultations 09/21/21 01:24 ED Decision to Admit Stat Ordered Studies 09/21/21 23:27 CT head/brain wo con Urgent 09/25/21 08:50 US renal/blad retro comp Routine Hospital Course (1) COVID-19: (2) Fall: 76-year-old male with a past medical history of dementia and hypercholesterolemia had a fall at home and was found to be COVID-positive in ED 09/21. We have placed him on dexamethasone, DVT prophylaxis with Lovenox and remdesivir. Was under COVID protocol. Overnight of 09/25 patient desaturated and needed BiPAP to maintain saturation in low 90s and patient has become less responsive over the day on 09/25. He was being managed for the following: (1) acute respiratory failure secondary to pneumonia secondary to COVID-19 virus infection (2) Episode of generalized weakness: (3) Fall: (4) Hypercholesterolemia: (5) Dementia: Had multiple discussion with patient's over the day on 09/25 and with the family (pt's and 2 dtrs) in the evening, updated about the current status of the patient and given the worsening status, family decided to go ahead with comfort care after family meeting in the evening of 09/25. Comfort care orders were instituted and patient was documented to be on 09/25/2021 at 2110 hrs. Cause of : Acute respiratory failure secondary to pneumonia secondary to COVID-19 virus infection. Total Time Total Time Spent Total Time Spent (In Minutes): 31 Discharge Plan Discharge Items Patient Disposition: Other Date/Time: 09/25/21 21:20
== END 2021-09-25 22:00 | disposition expired | DRG 177 ==
LOC: ED 23:58 → EDINP 09-21 02:58 → SUATTDRO 09-21 02:58 → 2S 09-21 05:04